=== PATIENT | female | born 1985 | race Caucasian/White ===

== ENCOUNTER → 2017-04-28 | Outpatient (CLI) | payer OTHER ==
[~2017-04-28] MED LIST: MOTRIN 600600 MG/TAB PO
== END ==
LOC: COL.RAD 10:09
DX: Q51.818 Other congenital malformations of uterus (principal)
CPT/HCPCS: Q9967

== ENCOUNTER → 2017-05-19 | Outpatient (CLI) | payer OTHER | LOC: COL.RAD 05-12 07:30 | DX: Q51.3 Bicornate uterus (principal); Z53.09 Procedure and treatment not carried out because of other contraindication ==

== ENCOUNTER → 2017-06-23 | Outpatient (CLI) | payer OTHER | LOC: COL.RAD 12:49 | DX: Q51.3 Bicornate uterus (principal) | CPT/HCPCS: A9585 ==

== ENCOUNTER → 2018-03-07 | Outpatient (CLI) | payer OTHER | LOC: SUN.DIA 12:34 | DX: O24.419 Gestational diabetes mellitus in pregnancy, unspecified control (principal); Z3A.29 29 weeks gestation of pregnancy | CPT/HCPCS: G0108 ==